=== PATIENT | male | born 1985 | race Caucasian/White ===

== ENCOUNTER 2021-12-15 22:56 | Emergency (ER) | payer OTHER ==
[~2021-12-15] VITALS: Ht 172.7 cm; Wt 79.0 kg
[2021-12-15] MEDS ORDERED: KETOROLAC 60MG/2ML VIAL IM ONE (23:15)
[2021-12-16] VITALS: BP 138/75
== END 2021-12-16 ==
LOC: ER 22:56
DX: Z02.89 Encounter for other administrative examinations (principal); Z04.1 Encounter for examination and observation following transport accident
CPT/HCPCS: 71045; 73610; 96372; 99284; J1885